=== PATIENT | male | born 1990 | race Caucasian/White ===

== ENCOUNTER 2017-03-31 12:40 | Inpatient (IN) | payer BC ==
[~2017-03-31] VITALS: Ht 185.4 cm; Wt 176.9 kg
[2017-03-31] MEDS ORDERED: BACITRACIN ZINC OINT UDPKT TOP ONE (14:45)
[2017-03-31 17:46] LABS: BASOPHILS % 0.2 % (0.0-2.0); EOSINOPHILS % 0.8 % (0.0-5.0); HEMATOCRIT. 42.8 % (42.0-52.0); HEMOGLOBIN. 14.8 g/dL (14.0-18.0); MEAN CORPUSCULAR HEMOGLOBIN 29.7 pg (28.0-32.0); MEAN CORPUSCULAR VOLUME 86.1 fL (80.0-94.0); PLATELET 300 x1000/uL (130-400); RED BLOOD CELL COUNT 4.97 mill/uL (4.7-6.1); RED CELL DISTRIBUTION WIDTH 13.6 % (11.6-14.6)
[2017-03-31 17:51] LABS: CHLORIDE 107 mEq/L (98-107)
[2017-03-31 17:53] LABS: PROTHROMBIN TIME 10.1 sec (9.4-11.6)
[2017-03-31 18:01] LABS: CARBON DIOXIDE 27 mEq/L (21-32)
[2017-03-31] MEDS ORDERED: ACETAMINOPHEN 325MG TABLET PO PRN (20:45)
[2017-03-31] MEDS ORDERED: DOCUSATE SODIUM 100MG CAPSULE PO PRN (20:45)
[2017-03-31] MEDS ORDERED: CLONIDINE 0.1MG TABLET PO PRN (20:45)
[2017-03-31] MEDS ORDERED: IPRATROPIUM/ALBUTEROL 0.5-3(2.5)MG/3ML NEB INH PRN (20:45)
[2017-03-31] MEDS ORDERED: DIPHENHYDRAMINE 50MG/ML VIAL IV PRN (20:45)
[2017-03-31] MEDS ORDERED: LORAZEPAM 1MG TABLET PO PRN (20:45)
[2017-03-31] MEDS ORDERED: HYDROCODONE/ACETAMINOPHEN 5/325MG TABLET PO PRN (20:45)
[2017-03-31] MEDS ORDERED: MORPHINE SULFATE 2 MG/ML CPJ (NOT FOR IM USE) IV PRN (20:45)
[2017-03-31 23:13] LABS: CREATINE KINASE 131 IU/L (39-308); PROTHROMBIN TIME 10.4 sec (9.4-11.6)
[2017-03-31 23:14] LABS: TROPONIN I < 0.02 ng/mL (0.00-0.04)
[2017-04-01 05:45] VITALS: BP 136/91
[2017-04-01 08:00] VITALS: BP 143/85
[2017-04-01] MEDS ORDERED: MULTIVITAMINS,THER W-MINERALS TABLET PO SCH (09:00)
[2017-04-01] MEDS ORDERED: PNEUMOCOCCAL 23-VAL P-SAC VAC 0.5 ML IM ONE (09:00)
[2017-04-01 10:30] LABS: BASOPHILS % 0.3 % (0.0-2.0); EOSINOPHILS % 0.5 % (0.0-5.0); HEMATOCRIT. 42.1 % (42.0-52.0); HEMOGLOBIN. 14.4 g/dL (14.0-18.0); LYMPHOCYTES % 19.1 % (20.0-50.0); MEAN CORPUSCULAR HEMOGLOBIN 29.6 pg (28.0-32.0); MEAN CORPUSCULAR VOLUME 86.5 fL (80.0-94.0); MEAN PLATELET VOLUME 9.1 fl (7.4-10.4); MONOCYTES % 4.2 % (2.0-8.0); NEUTROPHILS % 75.9 % (40.0-76.0); PLATELET 268 x1000/uL (130-400); RED BLOOD CELL COUNT 4.86 mill/uL (4.7-6.1); RED CELL DISTRIBUTION WIDTH 13.6 % (11.6-14.6)
[2017-04-01 10:56] LABS: CARBON DIOXIDE 24 mEq/L (21-32); CHLORIDE 104 mEq/L (98-107); CREATINE KINASE 125 IU/L (39-308); HDL CHOLESTEROL 50 mg/dL (40-59); LDL CHOLESTEROL 103 mg/dL (5-100); TROPONIN I < 0.02 ng/mL (0.00-0.04)
[2017-04-01 12:44] VITALS: BP 156/84
== END 2017-04-01 14:30 | disposition home or self-care (01) | DRG 300 ==
LOC: ER 13:00 → 8WST 19:17
PROVIDERS: ADMIT Internal Medicine; ATTEND Internal Medicine
DX: I83.892 Varicose veins of left lower extremity with other complications (principal); D62 Acute posthemorrhagic anemia; I10 Essential (primary) hypertension; Z68.43 Body mass index [BMI] 50.0-59.9, adult; E66.9 Obesity, unspecified; I83.91 Asymptomatic varicose veins of right lower extremity
CPT/HCPCS: 36415; 80053; 80061; 82550; 83036; 84443; 84484; 85025; 85610; 90732; 93970; 99285; J7030